=== PATIENT | male | born 1940 | race Caucasian/White ===

== ENCOUNTER → 2023-11-01 12:32 | Outpatient (REF) | payer OTHER, SELFPAY | LOC: RAD 12:32 | PROVIDERS: ATTENDING PHYSICIAN Podiatrist Foot Surgery; FAMILY PHYSICIAN Family Medicine; REFERRING PHYSICIAN Internal Medicine Critical Care Medicine | DX: I82.402 Acute embolism and thrombosis of unspecified deep veins of left lower extremity (principal) | CPT/HCPCS: 93970 ==

== ENCOUNTER → 2023-11-09 12:05 | Outpatient (REF) | payer OTHER, SELFPAY | LOC: PAVMRI 12:05 | PROVIDERS: ATTENDING PHYSICIAN Family Medicine; FAMILY PHYSICIAN Internal Medicine Critical Care Medicine | DX: H53.123 Transient visual loss, bilateral (principal); I27.20 Pulmonary hypertension, unspecified | CPT/HCPCS: 93306 ==

== ENCOUNTER → 2023-12-07 15:03 | Outpatient (REF) | payer OTHER, SELFPAY | LOC: RAD 15:03 | PROVIDERS: ATTENDING PHYSICIAN Family Medicine | DX: H53.123 Transient visual loss, bilateral (principal) | CPT/HCPCS: 93880 ==

== ENCOUNTER 2024-01-15 11:13 | Emergency (ER) | payer OTHER, SELFPAY ==
[2024-01-15 11:14] VITALS: BP 154/64
--- NOTE | 2024-01-15 11:44 | ED.GENMED ---
History of Present Illness
General
Chief Complaint: Abnormal Lab Value
Time Seen by Provider: 01/15/24 11:17
Travel History
Have you had any contact with someone who has COVID-19?: No
Do you have any symptoms of coronavirus? Fever > 100 degrees, chills, cough, shortness of breath, sore throat, loss of taste or smell, muscle aches, or headache?: No
History of Present Illness
History of Present Illness:
83-year-old male presents emerged from due to chronic shortness of breath and an elevated D-dimer. He was sent in by , and told to come weeks ago. He has chronic shortness of breath, denies chest pain. History of DVT. He does not take
any blood thinners.
Past History
Past History
ED Past Medical History: HTN, Hypercholesterolemia, NIDDM, Hypothyroidism and Other (Sepsis, chronic kidney disease, peripheral vascular disease, BPH, atherosclerosis)
ED Past Surgical History: Orthopedic (R and L rotator cuff, R elbow surg, left knee replacement)
Social History
Tobacco: Former smoker
Alcohol: None
Drug: None
Personal:
Living: with family
Employment: Employed
Family History
Family History: Diabetes
Phy Exam
Physical Exam
Physical Exam:
Physical Exam
General: no apparent distress, not acutely ill
Neck: supple. no meningeal signs. normal posterior pharynx
Heart: s1/s2 regular rate and rhythm, no murmur. equal radial
pulses.
HEENT: Pupils equal round reactive to light, EOMI
Lungs: no acute respiratory distress. clear bilaterally
Abdomen: normal bowel sounds. not tender. no CVAT
Neuro: alert and oriented. no focal neurological deficits cranial nerves II through XII intact
Skin: no rash
Psychiatric: well kept. interactive and cooperative
Extremities: no edema. no calf tenderness. negative homans. good distal pulses
Course
Orders/Labs/Results
Orders:
Orders
01/15/24 11:41
CT Chest Pe Study Urgent
Comment:
Reason For Exam: short of breath, elev ddimer
01/15/24 11:42
IV Insert/Care/Rem.- Treatment PRN
01/15/24 11:47
ECG [Electrocardiogram (*1)] Urgent
Reason for Study: Other
Other Reason for Exam: ecg
Complete Blood Count/With Diff Urgent
Comprehensive Metabolic Panel Urgent
NT-proBNP Urgent
Troponin I Urgent
01/15/24 11:49
EKG- Treatment ONCE
Abnormal Lab Results
01/15/24
11:47
RBC 3.79 L 10^6/uL
(4.70-6.10)
Hgb 10.8 L g/dL
(13.0-18.0)
Hct 33.3 L %
(39.0-52.0)
MCHC 32.4 L g/dL
(33.0-37.0)
RDW 17.5 H %
(11.5-14.5)
MPV 12.0 H fL
(7.4-10.4)
Absolute Monos (auto) 0.7 H 10^3/uL
(0.1-0.6)
Monocytes % 9.8 H %
(1.7-9.3)
BUN 33 H mg/dl
(9-20)
Creatinine 1.4 H mg/dL
(0.7-1.3)
Glucose 206 H mg/dl
(70-99)
Alkaline Phosphatase 140 H U/L
(38-126)
01/15/24 11:47
01/15/24 11:47
Vital Signs
Initial and Last Documented VS:
Initial Vital Signs
Temp Pulse Resp BP Pulse Ox
97.8 F 55 18 154/64 97
01/15/24 11:14 01/15/24 11:14 01/15/24 11:14 01/15/24 11:14 01/15/24 11:14
Last Documented Vital Signs
Temp Pulse Resp BP Pulse Ox
97.8 F 57 18 151/68 97
01/15/24 11:14 01/15/24 13:01 01/15/24 13:01 01/15/24 13:01 01/15/24 13:01
MDM/Problems Addressed
Differential Diagnosis Includes:
CHF, pneumonia, PE
MDM/Problems Addressed:
83-year-old male with chronic shortness of breath, unclear etiology. Mild elevation in D-dimer. CT chest no acute findings. Will follow-up with pulmonology.
Chronic conditions affecting care: DM and HTN
Acute Exacerbation and/or Progression of Chronic Illness: DM and HTN
*Radiology
Radiology exam reviewed: radiology read reviewed (CT chest no acute findings)
*Pulse Oximetry
Patient hypoxic: no
*EKG
Interpreted by ED Provider?: Yes
EKG Intrepretation Date: 01/15/24
EKG Intrepretation Time: 11:56
Interpretation: abnormal
Comparison EKG: no changes
Heart Rate: 58
Rate: bradycardiac
Rhythm: sinus and sinus arrhythmia
[place]: left axis deviation
Interval: normal interval
QRS Pattern: normal QRS
Ischemia: no ischemia
*Hospice Bereavement Coordinator Interpretation
Rate: bradycardiac
Interpretation: abnormal
Heart Rate: 56
Rhythm: sinus
*Critical Care Note
Total Time (30-74mins, 75-104mins- exclusive of procedures): Not Applicable
Data Reviewed
Review of Other/Old Records Reveals: Labs (Outpatient D-dimer of 1.62)
Source: records
Patient Management
Social determinants of health affecting care: Living situation
Discussion with other providers: Milieu Manager (Pulmonology, Dr. Mercado)
Escalation/DeEscalation of care consider admission/obs:
Admit not indicated
ED Attending Note
-
Portions of this chart may have been created with voice recognition software.� Occasional wrong word or��sound alike� substitutions may have occurred due to the inherent limitations of voice recognition software.
Discharge Plan
Departure
Patient Disposition: Home (Routine Discharge)
Date of Disposition: 01/15/24
Time of Disposition: 15:06
Patient with high blood pressure during this ER visit?: Yes
Condition: Good
Discharge Problem:
Dyspnea
Instructions: Shortness of Breath, Adult ED
Prescriptions:
No Action
atorvastatin 40 mg Tablet
40 mg PO QPM
valsartan 80 mg Tablet
80 mg PO DAILY
Theragen Tablet
1 tab PO DAILY
clopidogrel 75 mg Tablet
75 mg PO DAILY
aspirin 81 mg Tablet,Delayed Release (Dr/Ec)
81 mg PO QPM
levothyroxine 100 mcg Tablet
100 mcg PO DAILY
tamsulosin 0.4 mg Capsule
0.4 mg PO BID
pantoprazole 40 mg Tablet,Delayed Release (Dr/Ec)
40 mg PO BID
insulin aspart U-100 [Novolog FlexPen U-100 Insulin] 100 unit/mL (3 mL) Insulin Pen
0 sliding scale dose SC DIRECTED
Patient Comments:
01/15/2024, per pt., he uses between 28-30 units AC depending on what his sugars are; he does not use this med. when his BS is below 80. Pt. uses on a sliding scale but does not know what it is.
insulin glargine [Lantus Solostar U-100 Insulin] 100 unit/mL (3 mL) Insulin Pen
40 unit SC HS
Ozempic 0.25 mg or 0.5 mg (2 mg/3 mL) pen injector
0.5 mg SC FR@0900
Miralax Gummies
2 gummy PO DAILY
Referrals:
Anum Mercado MD [Active] - Call in 1-3 days for appt
UNKNOWN - PT DOES,NOT KNOW [Family Provider] -
Interventions
Interventions:
*Risk Screen - Suicide Last Done: 01/15/24 11:14
*General Assessment Last Done: 01/15/24 11:14
*Neglect/Abuse Screening Last Done: 01/15/24 11:14
ED- Fall Risk Assessment Last Done: 01/15/24 11:27
*ED COVID-19 Vaccine History Last Done: 01/15/24 11:26
Discharge Date and Time
Print Language: IVORIAN
[2024-01-15 12:03] LABS: % Basophils 0.4 % (0-2); % Eosinophils 2.8 % (0-6); % Immature Granulocytes 0.3 % (0-0.5); % Lymphocytes 26.5 % (20.5-51.1); % Monocytes 9.8 % (1.7-9.3); % Neutrophils 60.2 % (42.2-75.2); Absolute Eosinophils 0.2 10^3/uL (0-0.7); Absolute Monocytes 0.7 10^3/uL (0.1-0.6); Absolute Neutrophils 4.4 10^3/uL (1.4-6.5); Hematocrit 33.3 % (39.0-52.0); Hemoglobin 10.8 g/dL (13.0-18.0); Mean Corp Hgb Conc. 32.4 g/dL (33.0-37.0); Mean Corpuscular Hgb 28.5 pg (27.0-31.0); Mean Corpuscular Volume 87.9 fL (80.0-94.0); Nucleated Red Blood Cells % 0 % (-); Platelet Count 253 10^3/uL (130-400); Red Blood Cell Count 3.79 10^6/uL (4.70-6.10); Red Cell Dist. Width 17.5 % (11.5-14.5); White Blood Cell Count 7.4 10^3/uL (4.8-10.8)
[2024-01-15 12:31] LABS: ALT (SGPT) 24 U/L (0-50); AST (SGOT) 29 U/L (17-59); Albumin 3.9 g/dl (3.5-5.0); Alkaline Phosphatase 140 U/L (38-126); Blood Urea Nitrogen 33 mg/dl (9-20); Calcium 9.3 mg/dl (8.4-10.2); Carbon Dioxide 23 mmol/L (22-30); Chloride 107 mmol/L (98-107); Glucose 206 mg/dl (70-99); Potassium 5.1 mmol/L (3.5-5.1); Sodium 137 mmol/L (135-145); Total Bilirubin 0.8 mg/dl (0.2-1.3); eGFR 50.49
[2024-01-15 12:43] LABS: NT-proBNP 325 pg/ml; Troponin I < 0.012 ng/ml
[2024-01-15 13:01] VITALS: BP 151/68
[2024-01-15 15:12] VITALS: BP 147/73
== END 2024-01-15 15:40 | disposition home or self-care (01) ==
LOC: EMR 11:13
PROVIDERS: EMERGENCY PHYSICIAN Emergency Medicine
DX: R06.00 Dyspnea, unspecified (principal); I13.0 Hypertensive heart and chronic kidney disease with heart failure and stage 1 through stage 4 chronic kidney disease, or unspecified chronic kidney disease; N18.9 Chronic kidney disease, unspecified; E11.22 Type 2 diabetes mellitus with diabetic chronic kidney disease; I50.9 Heart failure, unspecified; Z87.891 Personal history of nicotine dependence
CPT/HCPCS: 99285; 71275; 80053; 83880; 84484; 85025; 93005; Q9967

== ENCOUNTER → 2024-03-13 11:27 | Outpatient (REF) | payer OTHER, SELFPAY | LOC: MRI 11:27 | PROVIDERS: ATTENDING PHYSICIAN Family Medicine | DX: G45.3 Amaurosis fugax (principal); H53.9 Unspecified visual disturbance | CPT/HCPCS: 70551 ==

== ENCOUNTER → 2024-04-18 10:52 | Outpatient (REF) | payer OTHER, SELFPAY | LOC: RAD 10:52 | PROVIDERS: ATTENDING PHYSICIAN Internal Medicine Critical Care Medicine; FAMILY PHYSICIAN Family Medicine | DX: I82.402 Acute embolism and thrombosis of unspecified deep veins of left lower extremity (principal) | CPT/HCPCS: 93970 ==

== ENCOUNTER 2024-05-16 06:18 | Day surgery (SDC) | payer OTHER, SELFPAY ==
[2024-05-03 10:46] LABS: Urine Albumin Negative (Neg - Trace); Urine Bilirubin Negative (Negative); Urine Character Clear (Clear); Urine Color Yellow; Urine Glucose Negative (Negative); Urine Ketone Negative (Negative); Urine Leukocyte 1+ (Negative); Urine Nitrite Negative (Negative); Urine Occult Blood Negative (Negative); Urine Specific Gravity 1.015 (<1.030); Urine Urobilinogen Negative (Neg - 1+)
[2024-05-03 10:48] LABS: Hematocrit 34.1 % (39.0-52.0); Hemoglobin 11.2 g/dL (13.0-18.0); Mean Corp Hgb Conc. 32.8 g/dL (33.0-37.0); Mean Corpuscular Hgb 29.1 pg (27.0-31.0); Mean Corpuscular Volume 88.6 fL (80.0-94.0); Mean Platelet Volume 12.8 fL (7.4-10.4); Platelet Count 285 10^3/uL (130-400); Red Blood Cell Count 3.85 10^6/uL (4.70-6.10); Red Cell Dist. Width 17.2 % (11.5-14.5)
[2024-05-03 11:04] LABS: INR 1.17; PT 14.8 Sec (11.4-14.6)
[2024-05-03 11:06] LABS: APTT 30.8 Sec (23.4-35.0)
[2024-05-03 11:29] LABS: Blood Urea Nitrogen 35 mg/dl (9-20); Calcium 9.4 mg/dl (8.4-10.2); Carbon Dioxide 24 mmol/L (22-30); Chloride 104 mmol/L (98-107); Glucose 208 mg/dl (70-99); Potassium 5.3 mmol/L (3.5-5.1); Sodium 139 mmol/L (135-145); eGFR 50.49
[2024-05-03 11:34] LABS: Urine Urothelial Cell 0-2 /LPF (FEW)
[2024-05-03 11:35] LABS: Urine Bacteria Few (Negative); Urine White Cell 30-40 /HPF (0-5)
[2024-05-03 11:36] LABS: Urine Red Blood Cell None Seen /HPF (0-2)
[2024-05-03 13:09] VITALS: BMI 36.6
--- NOTE | 2024-05-03 14:09 | PTCARENOTE ---
Linnette in Dr. Chi office made aware of urine WBC 30-40.
--- NOTE | 2024-05-06 15:32 | PTCARENOTE ---
Patient stated last dose of Ozepmic 05/03; took Plavix and ASA this morning- Isabela @ Dr. Chi office notified.
[2024-05-16] VITALS (7 sets, daily range): BP systolic 119–148; BP diastolic 55–66; BMI 36.6
[2024-05-16] MEDS: NORMOSOL-R/PLASMALYTE-A 1000 IV (08:23)
[2024-05-16] MEDS: Pyridium 200 MG PO (08:24)
[2024-05-16] MEDS: NOVOLOG vial 6 UNITS SC (08:31)
[2024-05-16 09:31] LABS: Glucose - Point of Care 231 mg/dl (70-99)
[2024-05-16 10:38] LABS: Glucose - Point of Care 231 mg/dl (70-99)
[2024-05-16] MEDS: NOVOLOG vial 3 UNITS SC (10:46)
[2024-05-16 11:54] LABS: Glucose - Point of Care 205 mg/dl (70-99)
[2024-05-20 09:57] LABS: Stone Analysis Mass 540 mg
== END 2024-05-16 12:00 | disposition home or self-care (01) ==
LOC: SDS 06:18
PROVIDERS: ATTENDING PHYSICIAN Specialist; FAMILY PHYSICIAN Nurse Practitioner
DX: N21.1 Calculus in urethra (principal); N39.0 Urinary tract infection, site not specified; Z87.440 Personal history of urinary (tract) infections
CPT/HCPCS: 52317; 36415; 80048; 81003; 81015; 82365; 82962; 85027; 85610; 85730

== ENCOUNTER → 2024-08-08 10:38 | Outpatient (REF) | payer OTHER, SELFPAY | LOC: RAD 10:38 | PROVIDERS: ATTENDING PHYSICIAN Internal Medicine Critical Care Medicine; FAMILY PHYSICIAN Family Medicine | DX: R06.02 Shortness of breath (principal) | CPT/HCPCS: 71046 ==

== ENCOUNTER → 2024-08-21 12:29 | Outpatient (REF) | payer OTHER, SELFPAY | LOC: RAD 12:29 | PROVIDERS: ATTENDING PHYSICIAN Internal Medicine Critical Care Medicine; FAMILY PHYSICIAN Family Medicine | DX: I27.20 Pulmonary hypertension, unspecified (principal) | CPT/HCPCS: 71046; 78582; 93306; A9540; A9567 ==

== ENCOUNTER → 2025-02-24 12:19 | Outpatient (REF) | payer OTHER, SELFPAY | LOC: RAD 12:19 | PROVIDERS: ATTENDING PHYSICIAN Student in an Organized Health Care Education/Training Program | DX: R07.81 Pleurodynia (principal) | CPT/HCPCS: 71046 ==

== ENCOUNTER → 2025-03-11 07:21 | Outpatient (REF) | payer OTHER, SELFPAY | LOC: RCS 07:21 | PROVIDERS: ATTENDING PHYSICIAN Internal Medicine Cardiovascular Disease; FAMILY PHYSICIAN Student in an Organized Health Care Education/Training Program | DX: I25.10 Atherosclerotic heart disease of native coronary artery without angina pectoris (principal) | CPT/HCPCS: 78452; 93017; A9500; J2785 ==

== ENCOUNTER 2025-03-27 05:48 | Day surgery (SDC) | payer OTHER, SELFPAY ==
[2025-03-25 13:52] VITALS: BMI 37.8
[2025-03-25 15:14] LABS: Hematocrit 32.0 % (39.0-52.0); Hemoglobin 10.2 g/dL (13.0-18.0); Mean Corp Hgb Conc. 31.9 g/dL (33.0-37.0); Mean Corpuscular Volume 89.6 fL (80.0-94.0); Nucleated Red Blood Cells % 0 % (-); Red Cell Dist. Width 19.9 % (11.5-14.5)
[2025-03-25 15:31] LABS: Platelet Count 224 10^3/uL (130-400)
[2025-03-27] VITALS (9 sets, daily range): BP systolic 107–164; BP diastolic 55–93; BMI 37.5
[2025-03-27 06:43] LABS: Glucose - Point of Care 217 mg/dl (70-99)
[2025-03-27] MEDS: NSS 348 ML IV (06:44)
[2025-03-27 08:44] LABS: Glucose - Point of Care 215 mg/dl (70-99)
--- NOTE | 2025-03-27 08:47 | ITS.CL.CATH ---
Sewer And Drain Technician - Catheterization
Cardiac Catheterization
Procedure Report:
CARDIAC CATHETERIZATION REPORT
Date of Procedure: 03/27/2025
Referring: Mac Carter M.D.
Indication: Known coronary artery disease, worsening dyspnea.
PROCEDURE:
1. Right heart catheterization.
2. Coronary angiography.
3. Left heart catheterization.
A total of 20 minutes of procedural/moderate sedation was utilized. An independent registered medical assistant was present to assist with and help manage the patient's level of consciousness and physiologic status.
ACCESS:
1. 6 Moroccan right radial artery using a modified Seldinger technique.
2. 5 Moroccan right vein using a previously placed IV.
CATHETERS:
1. 5 Moroccan balloon.
2. 5 Moroccan JR4.
3. 5 Moroccan JL 3.5.
HEMODYNAMIC DATA
Weight (kg): 115.0
AO (s/d/x, mmHg): 131/60/92
LV (s/x, mmHg): 135/20
PCWP (a/v/x, mmHg): 27/24/20
PA (s/d/x, mmHg): 35/20/25
RV (s/x, mmHg): 35/15
RA (a/v/x, mmHg): 20/18/16
SVC SvO2 (%): 68.2
IVC SvO2 (%): Not obtained.
RA SvO2 (%): Not obtained.
RV SvO2 (%): Not obtained.
PA SvO2 (%): 63.0
SaO2 (%): 93.7
Hbg (g/dL): 9.6
ALFREDO
CO (L/min): 6.44
CI (L/min/m2): 2.76
Thermodilution
CO (L/min): Not performed.
CI (L/min/m2): Not performed.
TPG (mmHg): 5
PVR (Cronin Units): 0.78
SVR (dynes*seconds*cm^-5): 944
AVO2 Diff (Volume %): 4.01
AV gradient (x, mmHg): None.
AV area (cm2): Normal.
MV gradient (x, mmHg): Not obtained.
MV area (cm2): Not obtained.
LEFT VENTRICULOGRAPHY: Not performed.
AORTOGRAPHY: Not performed.
CORONARY ANGIOGRAPHY
Dominance: Left.
Left Main: Normal size, bifurcating vessel. There is no coronary artery disease.
LAD: Normal size vessel giving rise to 2 diagonals. The first diagonal is a sub-1 mm vessel. The second diagonal is a medium size vessel supplies in the distal anterolateral wall. A patent stent is present in the mid LAD, immediately distal to
the origin of D2. There are minor luminal irregularities elsewhere.
Ramus: Congenitally absent.
Circumflex: Large size, dominant vessel giving rise to 2 obtuse marginals before terminating as an LPDA. There are minor luminal irregularities.
RCA: Medium size, nondominant vessel. There is no coronary artery disease.
INTERVENTIONS
None.
Closure Device: Vascular band for the right radial artery, manual pressure for the right antecubital vein.
Radiation dose (mGy): 558.49
DAP (cm2.Gy): 35.1085
Fluoroscopy time (minutes): 6.7
CONCLUSIONS:
1. Left dominant circulation with a patent stent in the mid LAD and luminal irregularities in the remainder of the coronary tree.
2. Moderately elevated filling pressures (LVEDP = 20 mmHg, PCWP = 20 mmHg at 115.0 kg).
3. Top normal pulmonary pressure (mean PA = 25 mmHg).
4. Normal cardiac index (2.76 L/min/m�).
RECOMMENDATIONS:
1. Expectant management after cardiac catheterization via right radial/antecubital approach.
2. Limited weight bearing on the right wrist for one week.
3. Increase furosemide to 60 mg daily. BMP in 1 week.
4. Continue OMT/GDMT as hemodynamics will tolerate.
5. Aggressive secondary prevention with high-dose, high potency statin. Goal LDL <55.
6. Stable for outpatient follow-up.
Copy to: Mac Carter M.D., Sonja Galvez M.D.
Galo Manley DO, FACC, FACP
== END 2025-03-27 11:15 | disposition home or self-care (01) ==
LOC: CATH 05:48
PROVIDERS: ATTENDING PHYSICIAN Internal Medicine Cardiovascular Disease; FAMILY PHYSICIAN Student in an Organized Health Care Education/Training Program; REFERRING PHYSICIAN Internal Medicine Cardiovascular Disease
DX: I25.10 Atherosclerotic heart disease of native coronary artery without angina pectoris (principal); I12.9 Hypertensive chronic kidney disease with stage 1 through stage 4 chronic kidney disease, or unspecified chronic kidney disease; E11.22 Type 2 diabetes mellitus with diabetic chronic kidney disease; E78.5 Hyperlipidemia, unspecified; I27.22 Pulmonary hypertension due to left heart disease; E66.9 Obesity, unspecified; E03.9 Hypothyroidism, unspecified; D64.9 Anemia, unspecified; F32.A Depression, unspecified; I35.0 Nonrheumatic aortic (valve) stenosis; M19.90 Unspecified osteoarthritis, unspecified site; N18.30 Chronic kidney disease, stage 3 unspecified; Z68.37 Body mass index [BMI] 37.0-37.9, adult; Z79.4 Long term (current) use of insulin; Z79.82 Long term (current) use of aspirin; Z79.85 Long-term (current) use of injectable non-insulin antidiabetic drugs; Z79.890 Hormone replacement therapy; Z79.899 Other long term (current) drug therapy; Z86.718 Personal history of other venous thrombosis and embolism; Z88.5 Allergy status to narcotic agent; Z88.8 Allergy status to other drugs, medicaments and biological substances; Z95.5 Presence of coronary angioplasty implant and graft; Z96.653 Presence of artificial knee joint, bilateral
CPT/HCPCS: 99152; 36415; 82962; 85025; 93005; 93460; C1894; Q9967

== ENCOUNTER 2025-04-28 09:45 | Emergency (ER) | payer OTHER, SELFPAY ==
[2025-04-28 09:51] VITALS: BP 141/55
--- NOTE | 2025-04-28 12:35 | ED.GENMED ---
History of Present Illness
General
Chief Complaint: Musculo-Skeletal Complaint
Source: patient
Exam Limitations: none
Time Seen by Provider: 04/28/25 12:18
Nursing documentation reviewed up to this point in time: agreed with
History of Present Illness
History of Present Illness:
Patient is a 84 male history of CAD DVT (2021) (does not believe he is on anticoagulation any longer ) hypertension diabetes thyroidism,recent right heart catheterization , CKD presents to the ER complaining of pain. Patient reports
since of last week 4 days he has had pain to his ribs back and sides. It is worse with movement and goes away with rest. No pain with deep breath. He seems to have more pain if he is in a laying position and has to sit up. he does report
chronic shortness of breath but this is not new. He denies any injury. He denies any abdominal pain nausea vomiting.
He denies any cough fever or chills.
Patient had previous cardiac authorization recently March 27
Past History
Past History
ED Past Medical History: HTN, Hypercholesterolemia, NIDDM, Hypothyroidism and Other (Sepsis, chronic kidney disease, peripheral vascular disease, BPH, atherosclerosis)
ED Past Surgical History: Orthopedic (R and L rotator cuff, R elbow surg, left knee replacement)
Social History
Tobacco: Former smoker
Alcohol: None
Drug: None
Personal:
Living: with family
Employment: Employed
Family History
Family History: Diabetes
Phy Exam
General Physical Exam
General Presentation: no apparent distress
General age: appears stated age
General Skin: warm and dry
General Habitus: elderly
General Mental: alert
General Hydration: appears well hydrated
Cardiovascular Exam
Cardiovascular Exam: regular rate/rhythm, no murmur and normal peripheral pulses
Pulmonary Exam
Pulmonary Exam: lungs clear and no respiratory distress
Neurological Exam
Neurological Exam: alert and oriented x3
Musculoskeletal Exam
Musculoskeletal Exam: full ROM
Skin Exam
Skin Exam: normal color and warm/dry
Psychiatric Exam
Psychiatric Exam: normal mood/affect
Course
Orders/Labs/Results
Orders:
Orders
04/28/25 09:55
ECG [Electrocardiogram (*1)] Urgent
Reason for Study: Chest Pain
EKG- Treatment ONCE
04/28/25 12:51
Cardiac Monitoring- Treatment ONCE
IV Insert/Care/Rem.- Treatment PRN
04/28/25 13:04
Complete Blood Count/With Diff Urgent
Comprehensive Metabolic Panel Urgent
D-Dimer Urgent
Troponin I Urgent
04/28/25 15:15
CT Chest PE Study Urgent
Comment:
Reason For Exam: rib pain
0.9% Sodium Chloride 1000 ml [Nss] 1,000 ml IV BOLUS
Abnormal Lab Results
04/28/25
13:04
RBC 3.23 L 10^6/uL
(4.70-6.10)
Hgb 9.2 L g/dL
(13.0-18.0)
Hct 29.4 L %
(39.0-52.0)
MCHC 31.3 L g/dL
(33.0-37.0)
RDW 20.2 H %
(11.5-14.5)
Absolute Monos (auto) 0.7 H 10^3/uL
(0.1-0.6)
Monocytes % 12.7 H %
(1.7-9.3)
D-Dimer 2.41 H ug/mlFEU
(0.00-0.50)
BUN 39 H mg/dl
(9-20)
Creatinine 1.7 H mg/dL
(0.7-1.3)
Glucose 239 H mg/dl
(70-99)
Alkaline Phosphatase 173 H U/L
(38-126)
04/28/25 13:04
04/28/25 13:04
Vital Signs
Initial and Last Documented VS:
Initial Vital Signs
Temp Pulse Resp BP Pulse Ox
98.2 F 65 20 141/55 97
04/28/25 09:51 04/28/25 09:51 04/28/25 09:51 04/28/25 09:51 04/28/25 09:51
Last Documented Vital Signs
Temp Pulse Resp BP Pulse Ox
98.2 F 67 16 129/68 97
04/28/25 09:51 04/28/25 16:00 04/28/25 16:00 04/28/25 14:00 04/28/25 16:00
MDM/Problems Addressed
Differential Diagnosis Includes:
not limited to: muscle pain, less likely pe , less likely ACS negative to
MDM/Problems Addressed:
As documented patient is an 82-year-old male who presented for several days of what he describes as muscle pain in his chest ribs back. He has chronic shortness of breath this is not new. He did not want to come but his sister encouraged him to
come. He reports symptoms have been getting better. He has no acute distress. With pain in his bilateral rib area and history of DVT no longer anticoagulated CAT scan was done and PE. Symptoms have improved since patient has been here and he is
in no acute distress and looks well he is lungs are clear he is nontachycardic nontachypneic.
He has no joint pain symptoms are more consistent muscular pain. He denies any fevers and is afebrile here his white count is normal. His hemoglobin is mildly low and elevated renal function (hx of CKD). negative troponin no acute findings on
EKG, reviewed recent catheterization March 27
Stable for d/c home with outpt f/u.
Chronic conditions affecting care:
History of previous DVT 2021 no longer on anticoagulation, chronic kidney disease CAD
*Radiology
Radiology exam reviewed: radiology read reviewed
*Pulse Oximetry
SaO2: 97
Oxygen Mode of Delivery: Room air
Patient hypoxic: no
*EKG
Interpreted by ED Provider?: Yes
Heart Rate: 69
Rate: normal
Rhythm: sinus
Ischemia: non-specific ST changes
*Critical Care Note
Total Time (30-74mins, 75-104mins- exclusive of procedures): Not Applicable
ED Attending Note
-
Portions of this chart may have been created with voice recognition software.� Occasional wrong word or��sound alike� substitutions may have occurred due to the inherent limitations of voice recognition software.
Discharge Plan
Departure
Patient Disposition: Home (Routine Discharge)
Date of Disposition: 04/28/25
Time of Disposition: 17:58
Patient with high blood pressure during this ER visit?: Yes
Condition: Fair
Covid-19: Not Applicable
Discharge Problem:
Muscle pain
Instructions: Muscle and Bone Pain (DC), BLOOD PRESSURE
Prescriptions:
No Action
atorvastatin 40 mg Tablet
40 mg PO QPM
aspirin 81 mg Tablet,Delayed Release (Dr/Ec)
81 mg PO QPM
insulin aspart U-100 [Novolog FlexPen U-100 Insulin] 100 unit/mL (3 mL) Insulin Pen
0 sliding scale dose SC TID
Patient Comments:
01/15/2024, per pt., he uses between 28-30 units AC depending on what his sugars are; he does not use this med. when his BS is below 80. Pt. uses on a sliding scale but does not know what it is.
insulin glargine [Lantus Solostar U-100 Insulin] 100 unit/mL (3 mL) Insulin Pen
35 unit SC HS
nitroglycerin 0.4 mg Tablet, Sublingual
0.4 mg SUBLINGUAL Q5M PRN (Reason: Chest Pain)
furosemide 40 mg Tablet
40 mg PO DAILY
levothyroxine 100 mcg Tablet
100 mcg PO DAILY
pantoprazole 40 mg Tablet,Delayed Release (Dr/Ec)
40 mg PO HS
losartan 25 mg Tablet
25 - 50 mg PO DAILY
gabapentin 300 mg Capsule
300 mg PO HS
bupropion HCl 150 mg Tablet Extended Release 24 Hr
150 mg PO DAILY
One-A-Day Men's Multivitamin 400-20-300 mcg Tablet
1 tab PO DAILY
Mounjaro 5 mg/0.5 mL Pen Injector
5 mg SC FR
furosemide [Lasix] 20 mg tablet
20 mg PO DAILY Qty: 90 5RF
Rx Instructions:
total of 60mg daily
Referrals:
Sonja Galvez MD [Family Provider, Family Practice]
Activity Restrictions/Additional Instructions:
As discussed your CAT scan was negative for blood clot. Please follow-up with your family doctor for further evaluation of your sympotoms.
You do report your symptoms have improved. Please follow-up with your doctor for reevaluation of your labs. You are mildly anemic with a hemoglobin of 9.2 and your kidney function is elevated please have this rechecked by your family doctor.
You were given fluids here in the ER.
Interventions
Interventions:
*Risk Screen - Suicide Last Done: 04/28/25 11:35
*Neglect/Abuse Screening Last Done: 04/28/25 11:35
*ED- Fall Risk Assessment Last Done: 04/28/25 11:39
ED- Pulmonary Assessment Last Done: 04/28/25 12:40
ED-Musculoskeletal Assessment Last Done: 04/28/25 12:40
ED- Cardiac Assessment Last Done: 04/28/25 12:40
Discharge Date and Time
Print Language: ARABIC
[2025-04-28 13:34] LABS: Hematocrit 29.4 % (39.0-52.0); Hemoglobin 9.2 g/dL (13.0-18.0); Mean Corp Hgb Conc. 31.3 g/dL (33.0-37.0); Mean Corpuscular Volume 91.0 fL (80.0-94.0); Nucleated Red Blood Cells % 0 % (-); Platelet Count 171 10^3/uL (130-400); Red Cell Dist. Width 20.2 % (11.5-14.5)
[2025-04-28 13:41] LABS: ALT (SGPT) 29 U/L (0-50); AST (SGOT) 33 U/L (17-59); Albumin 4.0 g/dl (3.5-5.0); Alkaline Phosphatase 173 U/L (38-126); Blood Urea Nitrogen 39 mg/dl (9-20); Calcium 8.4 mg/dl (8.4-10.2); Carbon Dioxide 27 mmol/L (22-30); Chloride 105 mmol/L (98-107); Glucose 239 mg/dl (70-99); Potassium 4.7 mmol/L (3.5-5.1); Sodium 139 mmol/L (135-145); Total Protein 7.2 g/dl (6.3-8.2); eGFR 39.75
[2025-04-28 13:52] LABS: Troponin I < 0.012 ng/ml
[2025-04-28 14:00] VITALS: BP 129/68
[2025-04-28 14:20] LABS: D-Dimer 2.41 ug/mlFEU (0.00-0.50)
[2025-04-28] MEDS: NSS 1000 IV (15:33)
[2025-04-28 18:00] VITALS: BP 154/79
== END 2025-04-28 18:08 | disposition home or self-care (01) ==
LOC: EMR 09:45
PROVIDERS: Nurse Practitioner; EMERGENCY PHYSICIAN Student in an Organized Health Care Education/Training Program; FAMILY PHYSICIAN Student in an Organized Health Care Education/Training Program
DX: M79.10 Myalgia, unspecified site (principal); E78.00 Pure hypercholesterolemia, unspecified; I12.9 Hypertensive chronic kidney disease with stage 1 through stage 4 chronic kidney disease, or unspecified chronic kidney disease; E11.22 Type 2 diabetes mellitus with diabetic chronic kidney disease; N18.9 Chronic kidney disease, unspecified; E03.9 Hypothyroidism, unspecified; E11.51 Type 2 diabetes mellitus with diabetic peripheral angiopathy without gangrene; I25.10 Atherosclerotic heart disease of native coronary artery without angina pectoris; K44.9 Diaphragmatic hernia without obstruction or gangrene; N40.0 Benign prostatic hyperplasia without lower urinary tract symptoms; Z83.3 Family history of diabetes mellitus; Z86.718 Personal history of other venous thrombosis and embolism; Z87.891 Personal history of nicotine dependence; Z96.652 Presence of left artificial knee joint
CPT/HCPCS: 99284; 96360; 71275; 80053; 84484; 85025; 85379; 93005; Q9967

== ENCOUNTER → 2025-05-12 10:59 | Outpatient (REF) | payer OTHER, SELFPAY | LOC: RAD 10:59 | PROVIDERS: ATTENDING PHYSICIAN Student in an Organized Health Care Education/Training Program | DX: N18.30 Chronic kidney disease, stage 3 unspecified (principal) | CPT/HCPCS: 76770 ==

== ENCOUNTER → 2025-06-02 07:31 | Outpatient (REF) | payer OTHER, SELFPAY ==
[2025-06-02 09:02] LABS: Urine Character Clear (Clear)
[2025-06-02 09:14] LABS: Hematocrit 30.2 % (39.0-52.0); Hemoglobin 9.6 g/dL (13.0-18.0); Mean Corp Hgb Conc. 31.8 g/dL (33.0-37.0); Mean Corpuscular Volume 89.1 fL (80.0-94.0); Nucleated Red Blood Cells % 0 % (-); Platelet Count 206 10^3/uL (130-400); Red Cell Dist. Width 21.0 % (11.5-14.5)
[2025-06-02 09:28] LABS: Urine Red Blood Cell 0-2 /HPF (0-2); Urine White Cell 50-60 /HPF (0-5)
[2025-06-02 09:57] LABS: Albumin 4.5 g/dl (3.5-5.0); Blood Urea Nitrogen 63 mg/dl (9-20); Calcium 9.2 mg/dl (8.4-10.2); Carbon Dioxide 24 mmol/L (22-30); Chloride 106 mmol/L (98-107); Glucose 78 mg/dl (70-99); Iron 111 ug/dl (49-181); Potassium 3.8 mmol/L (3.5-5.1); Sodium 142 mmol/L (135-145); eGFR 29.17
[2025-06-02 10:06] LABS: Total Iron Binding Capacity 349 ug/dl (261-462)
[2025-06-02 10:19] LABS: Ferritin 68.6 ng/ml (17.9-464.0)
[2025-06-02 10:50] LABS: Folate > 20.0 ng/ml (2.76-20); Vitamin B12 592 pg/ml (239-931)
[2025-06-05 00:11] LABS: 24 Hour Urine Total Volume Random mL; Urine Collection Length Random hr
== END ==
LOC: REG 07:31
PROVIDERS: ATTENDING PHYSICIAN Student in an Organized Health Care Education/Training Program
DX: M54.50 Low back pain, unspecified (principal); N18.32 Chronic kidney disease, stage 3b; D64.9 Anemia, unspecified
CPT/HCPCS: 36415; 72110; 80069; 81003; 81015; 82607; 82728; 82746; 83520; 83540; 83550; 84155; 84156; 84165; 85025; 86335

== ENCOUNTER 2025-06-26 06:21 | Day surgery (SDC) | payer OTHER, SELFPAY ==
[2025-06-26 07:48] LABS: Glucose - Point of Care 167 mg/dl (70-99)
== END 2025-06-26 09:34 | disposition home or self-care (01) ==
LOC: GI 06:21
PROVIDERS: ATTENDING PHYSICIAN Internal Medicine Gastroenterology
DX: Z12.11 Encounter for screening for malignant neoplasm of colon (principal); K57.30 Diverticulosis of large intestine without perforation or abscess without bleeding; K64.9 Unspecified hemorrhoids; D64.9 Anemia, unspecified; R19.5 Other fecal abnormalities; K22.70 Barrett's esophagus without dysplasia; K31.89 Other diseases of stomach and duodenum; D12.3 Benign neoplasm of transverse colon; K29.50 Unspecified chronic gastritis without bleeding
CPT/HCPCS: 45380; 43239; 82962; 88305; 88342

== ENCOUNTER 2025-09-09 09:37 | Outpatient (RCR) | payer OTHER, SELFPAY | END 2025-09-09 23:59 | disposition home or self-care (01) | LOC: RPT 09:37 | PROVIDERS: ATTENDING PHYSICIAN Internal Medicine Cardiovascular Disease; FAMILY PHYSICIAN Student in an Organized Health Care Education/Training Program | DX: R42 Dizziness and giddiness (principal); M54.16 Radiculopathy, lumbar region; Z73.6 Limitation of activities due to disability; R26.89 Other abnormalities of gait and mobility | CPT/HCPCS: 97110; 97163 ==